=== PATIENT | male | born 1955 | race Caucasian/White ===

== ENCOUNTER 2021-11-12 07:08 | Emergency (ER) | payer OTHER ==
[~2021-11-12 07:08] MED LIST: GABAPENTIN100 MG PO; GABAPENTIN600 MG PO; MELOXICAM15 MG PO; NEURONTIN300 MG PO; OXYCODONE HCL10 MG PO; OXYCODONE-ACET1 EACH PO; OXYCONTIN10 MG PO
[2021-11-12] MEDS ORDERED: PREDNISONE 20MG20 MG PO (08:02)
[2021-11-12] MEDS ORDERED: ZOVIRAX800 MG PO (08:04)
== END 2021-11-12 08:27 | disposition home or self-care (01) ==
LOC: FER 07:08
DX: B02.9 Zoster without complications (principal); I10 Essential (primary) hypertension; K21.9 Gastro-esophageal reflux disease without esophagitis; F17.210 Nicotine dependence, cigarettes, uncomplicated; Z79.899 Other long term (current) drug therapy
CPT/HCPCS: 99282; J1885